=== PATIENT | female | born 1995 | race Caucasian/White ===

== ENCOUNTER 2018-09-16 07:05 | Outpatient (CLI) | payer OTHER ==
--- NOTE | 2018-09-16 09:10 | ULT ---
RIGHT UPPER QUADRANT ULTRASOUND: HISTORY: Right upper quadrant pain. FINDINGS: Slightly coarse liver echogenicity without hepatomegaly. No evidence of gallstones, wall thickening, edema, or pericholecystic fluid. Common bile duct 0.3 cm. Visualized pancreas and right kidney are unremarkable. No right upper quadrant abscess or abnormal fluid collection. IMPRESSION: Slightly coarse liver echogenicity. No evidence of gallstones or common duct dilatation. POS: T[facility]
== END 2018-09-16 07:06 | disposition home or self-care (01) ==
LOC: SCSULT 07:05
PROVIDERS: ATTEND Advanced Practice Midwife
DX: R10.11 Right upper quadrant pain (principal); K76.89 Other specified diseases of liver
CPT/HCPCS: 76705

== ENCOUNTER 2018-10-01 22:00 | Day surgery (SDC) | payer OTHER ==
[2018-10-01 22:43] VITALS: BP 135/67; TEMP 98.6; BMI 45.9
--- NOTE | 2018-10-01 22:59 | PDOC.LDHP ---
Labor and Delivery H&P Chief complaint: other (elevated BP) HPI: 22 y/o G1 at 20w3d, patient of Dr. Washington, presents with elevated BP at home. Patient has CHTN on Nifedipine XL but has not taken meds yet today. Noticed BPs were high at home and had a headache. Headache is typical for her, rated 2/ 10. BPs reported as high as 170 at home. Denies other complaints today. ROS neg for HEENT, CV, pulm, GI, , neuro, psych, skin, musculoskeletal, or constitutional symptoms other than mentioned above. OB History Details: 1st Past Medical History: Morbid obesity CHTN Current medications: pre- vitamins, other (Nifedipine XL, Aspirin 81mg) Previous surgical history: none Allergies/Adverse Reactions: Allergies Allergy/AdvReac Type Severity Reaction Status Date / Time sulfamethoxazole Allergy Intermediate Anxiety Verified 10/01/18 22:34 [From Bactrim] Penicillins Allergy Mild Hives Verified 10/01/18 22:34 trimethoprim [From Bactrim] Allergy Verified 10/01/18 22:33 Social history: none - Physical Exam Vital signs reviewed and normal: yes General: NAD, resting Lungs: nonlabored breathing Abdomen: gravid Extremeties: no edema - Assessment 22 y/o G1 at 20w3d with all normal BPs here. Declines Tylenol for headache. Normal FHTs. - Plan -: D/c home with precautions. Advised to follow up as scheduled or earlier if needed.
== END 2018-10-01 23:24 | disposition home or self-care (01) ==
LOC: L&D/OP 22:00
PROVIDERS: ATTEND Obstetrics & Gynecology
DX: O10.912 Unspecified pre-existing hypertension complicating pregnancy, second trimester (principal); O99.212 Obesity complicating pregnancy, second trimester; E66.01 Morbid (severe) obesity due to excess calories; Z3A.20 20 weeks gestation of pregnancy; Z88.2 Allergy status to sulfonamides; Z88.0 Allergy status to penicillin; Z79.82 Long term (current) use of aspirin; Z79.899 Other long term (current) drug therapy
CPT/HCPCS: 99282

== ENCOUNTER 2018-10-24 00:43 | Day surgery (SDC) | payer OTHER ==
[2018-10-24 01:34] VITALS: BMI 46.2
[2018-10-24 01:47] VITALS: BP 139/74; TEMP 99.2
[2018-10-24] MEDS ORDERED: hydrALAZINE 20 MG/ML VIAL SLOW IVP PRN (02:09)
--- NOTE | 2018-10-24 02:13 | PDOC.LDHP ---
Labor and Delivery H&P Chief complaint: other (N/V/Diarrhea) HPI: Patient of Dr Washington Time: 211 EGA: 23 weeks 5 days HPI: 23 yo G1 at 23 weeks 5 days with N/V/D since 10/22/18. States fever at home of 100.5. No VB, no LOF, no CTX. Review of Systems: completed ROS completed and as eper HPI Current gestational age (weeks): 23 (5 days) Due date: 02/15/19 Dating criteria: last menstrual period Grav: 1 Current complications: hypertension (Chronic HTN since High school on procardia) Abnormal US findings: No Past Medical History: CHTN Current medications: pre-anthony vitamins, other (ptocardia, zoloft, ASA) Previous surgical history: other (T&A, root canal) Allergies/Adverse Reactions: Allergies Allergy/AdvReac Type Severity Reaction Status Date / Time sulfamethoxazole Allergy Intermediate Anxiety Verified 10/24/18 01:30 [From Bactrim] Penicillins Allergy Mild Hives Verified 10/24/18 01:30 raspberry Allergy Verified 10/24/18 02:00 shrimp Allergy Verified 10/24/18 02:00 trimethoprim [From Bactrim] Allergy Verified 10/24/18 01:30 Social history: none - Physical Exam Vital signs reviewed and normal: yes (139/74 temp 99.2 106 20 100%) General: NAD Heart: RRR Lungs: CTAB Abdomen: gravid Extremeties: no edema Lengby contractions every: FHTS pos by doppler - Assessment 23 weeks 5 days, G1 with CHTN on meds...with N/V/D...possible gastroentreitis - Plan Plan: observation in L&D (I have ordered IV banana bag, zofran prn; we will check CMP, CBC, cath UA, RUQ sono)
[2018-10-24 02:37] LABS: #Eosinphils 0.1 thou/uL (0.0-0.7); #Lymphocytes 0.5 thou/uL (1.20-3.40); #Monocytes 0.5 thou/uL (0.11-0.59); #Neutrophils 9.8 thou/uL (1.40-6.50); %Basophils 0.1 % (0.0-1.0); %Eosinophils 0.5 % (0.0-10.0); %Lymphocytes 4.8 % (21.0-51.0); %Monocytes 4.6 % (0.0-10.0); Hemoglobin 12.6 g/dL (12.0-16.0); Mean Corpuscular Hemoglobin 29.8 pg (27.0-31.0); Mean Corpuscular Volume 85.2 fL (78.0-98.0); Mean Platelet Volume 6.8 fL (7.4-10.4); Platelet Count 240 thou/uL (130-400); RBC Distribution Width 12.8 % (11.5-14.5); Red Blood Cell (RBC) Count 4.23 mill/uL (4.20-5.40); White Blood Cell (WBC) Count 10.9 thou/uL (4.8-10.8)
[2018-10-24 02:55] LABS: ALT (SGPT) 11 U/L (8-55); AST (SGOT) 16 U/L (5-34); Albumin 3.5 g/dL (3.5-5.0); Alkaline Phosphatase 55 U/L (40-150); Anion Gap 11 mmol/L (10-20); BUN (Urea Nitrogen) 6 mg/dL (7.0-18.7); Bilirubin, Total 0.6 mg/dL (0.2-1.2); Calc. Creatinine Clearance 350 mL/min (70-130); Calcium 9.2 mg/dL (7.8-10.44); Carbon Dioxide 21 mmol/L (22-29); Chloride 107 mmol/L (98-107); Estimated GFR-MDRD Greater than 90; Globulin 2.9 g/dL (2.4-3.5); Glucose 101 mg/dL (70-105); Potassium 3.8 mmol/L (3.5-5.1); Protein, Total 6.4 g/dL (6.0-8.3); Sodium 135 mmol/L (136-145)
[2018-10-24] MEDS ORDERED: Multivitamins, Adult 10 ML, Folic Acid 1 MG, Thiamine HCl 100 MG in Dextrose 5 %-0.45 %... IV SCH (03:00)
[2018-10-24] MEDS ORDERED: Ondansetron HCl/PF 8 MG in Sodium Chloride 0.9% 50 ML IVPB SCH (03:00)
[2018-10-24 04:07] LABS: Bacteria/HPF None Seen HPF (None Seen); Bilirubin Negative (Negative); Blood, Urine Negative (Negative); Clarity Clear (Clear); Glucose, Urine (Dipstick) Normal (Negative); Leukocyte Negative Leu/uL (Negative); Nitrite Negative (Negative); Protein, Urine (Dipstick) 20 mg/dL (Neg-Trace); RBC/HPF 0-3 HPF (0-3); Squamous Epithelial 0-3 HPF (0-3); Urobilinogen Normal mg/dL (Less than 2); WBC/HPF 0-3 HPF (0-3)
[2018-10-24 04:08] LABS: Urine Culture Reflex No No
--- NOTE | 2018-10-24 04:20 | PDOC.EVN ---
Event Note - Event Note Event Note: labs and RUQ sono ok Home at 0500
--- NOTE | 2018-10-24 07:37 | ULT ---
GALLBLADDER ULTRASOUND: COMPARISON: 09/16/2018. CLINICAL INDICATION: patient with nausea and vomiting. FINDINGS: There is no evidence of focal hepatic lesion or acute gallbladder pathology. The common duct is norm al measuring 4 mm. No ascites. The incidentally imaged portions of the right kidney reveal no evide nce of hydronephrosis. IMPRESSION: No acute abnormality of the right upper quadrant identified by sonographic evaluation. POS: MIKY
== END 2018-10-24 05:08 | disposition home or self-care (01) ==
LOC: L&D/OP 00:43
PROVIDERS: ATTEND Obstetrics & Gynecology
DX: O21.2 Late vomiting of pregnancy (principal); O99.89 Other specified diseases and conditions complicating pregnancy, childbirth and the puerperium; R19.7 Diarrhea, unspecified; O10.912 Unspecified pre-existing hypertension complicating pregnancy, second trimester; Z3A.23 23 weeks gestation of pregnancy; Z79.899 Other long term (current) drug therapy; Z88.0 Allergy status to penicillin; Z88.2 Allergy status to sulfonamides; Z91.013 Allergy to seafood; Z91.018 Allergy to other foods
CPT/HCPCS: 51701; 76705; 80053; 81001; 85025; 96365; 96366; 99282; J2405; J3411; J7042

== ENCOUNTER 2018-12-02 15:49 | Day surgery (SDC) | payer OTHER ==
[2018-12-02 16:33] VITALS: BP 126/66; TEMP 98.9; BMI 47.1
[2018-12-02] MEDS ORDERED: hydrALAZINE 20 MG/ML VIAL SLOW IVP PRN (16:46)
--- NOTE | 2018-12-02 17:17 | ULT ---
ULTRASOUND BIOPHYSICAL PROFILE: HISTORY: Decreased movement, distress FINDINGS: A single live intrauterine gestation is seen. heart rate:158bpm KAREN: 5.8 cm Placenta: Anterior maternal left without placenta previa OB biophysical profile: tone: 2 breathin movements: 2 Amniotic fluid: 2 IMPRESSION: The ultrasound biophysical profile score is 8 out of 8.
--- NOTE | 2018-12-03 03:15 | SS ---
DATE OF ADMISSION: 12/02/2018 DATE OF DISCHARGE: 12/02/2018 REGULAR PHYSICIAN: Tara Washington MD EVALUATING PHYSICIAN: Maynor Leal MD CHIEF COMPLAINT: Sent from Dr. Washington's office. HISTORY OF PRESENT ILLNESS: Ms. Valdez is a 23-year-old white G1, P0 with an estimated date of confinement of 02/15/2019, who presents complaining of decreased movement over the last 24 hours. She denies bleeding or loss of fluid. Her care has been with Dr. Washington and she has been followed by Maternal- Medicine as a high-risk . PAST MEDICAL HISTORY: Hypertension and anxiety. PAST SURGICAL HISTORY: Tonsillectomy and adenoidectomy. CURRENT MEDICATIONS: 1. BuSpar 15 mg daily. 2. Sertraline 50 mg daily. 3. vitamins. 4. Procardia XL 90 mg once a day. 5. Aspirin 81 mg daily. ALLERGIES: PENICILLIN AND BACTRIM. SOCIAL HISTORY: She denies tobacco or alcohol use. FAMILY HISTORY: Unremarkable. REVIEW OF SYSTEMS: She denies nausea, vomiting, fever, chills, ruptured membranes, or vaginal bleeding. PHYSICAL EXAMINATION: VITAL SIGNS: Blood pressure is 136/74. She is afebrile. GENERAL: She is pleasant, in no distress. ABDOMEN: Soft, nontender, gravid, and obese. PELVIC: Deferred. heart rate tracing is stable with no decelerations. Biophysical profile ordered by Dr. Washington returns, 10/23, but a note of an KAREN of 5.8 was reported to me. ASSESSMENT: 1. Cwkaxw-haof-umjo intrauterine . 2. Decreased movement, now resolved. 3. Reassuring biophysical profile with KAREN of 5.8. PLAN: I have discussed with Dr. Washington and the plan at this time due to the findings on biophysical profile will be to send her home with kick counts and to hydrate herself well at home. She will call Dr. Washington's office in the morning for followup ultrasound. Job ID: [id number]
== END 2018-12-02 17:40 | disposition home health service (06) ==
LOC: L&D/OP 15:49
PROVIDERS: ATTEND Obstetrics & Gynecology
DX: O36.8130 Decreased fetal movements, third trimester, not applicable or unspecified (principal); O10.913 Unspecified pre-existing hypertension complicating pregnancy, third trimester; O99.343 Other mental disorders complicating pregnancy, third trimester; F41.9 Anxiety disorder, unspecified; Z3A.29 29 weeks gestation of pregnancy; Z79.82 Long term (current) use of aspirin; Z79.899 Other long term (current) drug therapy; Z88.0 Allergy status to penicillin; Z88.8 Allergy status to other drugs, medicaments and biological substances
CPT/HCPCS: 76819; 99282

== ENCOUNTER 2018-12-08 16:02 | Observation (INO) | payer OTHER ==
[2018-12-08 16:19] VITALS: BMI 47.5
[2018-12-08] MEDS ORDERED: hydrALAZINE 20 MG/ML VIAL SLOW IVP PRN (16:45)
[2018-12-08] MEDS ORDERED: Ondansetron PF 4 MG/2 ML Vial IVP PRN (16:45)
[2018-12-08] MEDS ORDERED: Promethazine HCl 25 MG/ML VIAL IM PRN (16:45)
[2018-12-08] MEDS ORDERED: Acetaminophen 500 MG TAB PO PRN (16:45)
[2018-12-08 17:16] LABS: Hemoglobin 11.9 g/dL (12.0-16.0); Mean Corpuscular HGB CONC 34.3 g/dL (32.0-36.0); Mean Corpuscular Hemoglobin 29.2 pg (27.0-31.0); Mean Corpuscular Volume 85.1 fL (78.0-98.0); Platelet Count 266 thou/uL (130-400); RBC Distribution Width 12.7 % (11.5-14.5); Red Blood Cell (RBC) Count 4.08 mill/uL (4.20-5.40); White Blood Cell (WBC) Count 12.1 thou/uL (4.8-10.8)
[2018-12-08 17:42] LABS: ALT (SGPT) 9 U/L (8-55); AST (SGOT) 13 U/L (5-34); Albumin 3.5 g/dL (3.5-5.0); Alkaline Phosphatase 60 U/L (40-150); Anion Gap 12 mmol/L (10-20); BUN (Urea Nitrogen) 8 mg/dL (7.0-18.7); Bilirubin, Total 0.3 mg/dL (0.2-1.2); Calc. Creatinine Clearance 326 mL/min (70-130); Calcium 10.2 mg/dL (7.8-10.44); Carbon Dioxide 21 mmol/L (22-29); Chloride 107 mmol/L (98-107); Estimated GFR-MDRD Greater than 90; Globulin 2.8 g/dL (2.4-3.5); Glucose 103 mg/dL (70-105); Potassium 3.7 mmol/L (3.5-5.1); Protein, Total 6.3 g/dL (6.0-8.3); Sodium 136 mmol/L (136-145)
--- NOTE | 2018-12-08 17:50 | HP ---
TIME OF SERVICE: 1700. REASON FOR ADMISSION: Gestational hypertension superimposed on chronic hypertension with severe range levels in office at 30 weeks' gestation. HISTORY OF PRESENT ILLNESS: Ms. Valdez is a 23-year-old, G1, P0 with EDC of 02/15, who sees Dr. Tara Washington. The patient has a history of pre-gestational hypertension and was started on Procardia, and in the first trimester, it was increased from 30 mg to 90. She skipped a couple of doses over the weekend and today in the office had a blood pressure of 180 systolic. She denies headache, scotoma, or right upper quadrant pain. The patient has had several visits to the OB unit for elevated pressures in the office that have resolved on their own. RADIOLOGIST HISTORY: As noted. O negative, antibody negative. Pap negative. Rubella immune. VDRL nonreactive. Hepatitis B, GC, and Chlamydia are negative. 50-gram within normal limits. PAST MEDICAL HISTORY: Significant for morbid obesity, depression, and anxiety as well as chronic hypertension. PAST SURGICAL HISTORY: None. ALLERGIES: 1. SULFA. 2. PENICILLIN. 3. RASPBERRY. 4. SHRIMP. 5. TRIMETHOPRIM. MEDICATIONS: 1. Procardia XL 90 at bedtime. 2. BuSpar 15 p.o. at bedtime. 3. Zoloft 50 p.o. at bedtime. 4. vitamin p.r.n. SOCIAL HISTORY: Denies tobacco, alcohol, or drug use. FAMILY HISTORY: Noncontributory. REVIEW OF SYSTEMS: Noncontributory. PHYSICAL EXAMINATION: GENERAL: Morbidly obese, white female. VITAL SIGNS: Current blood pressure 132/80, pulse 85, respirations 18, temperature 98.7. HEENT: Within normal limits. LUNGS: Clear to auscultation bilaterally. HEART: Regular rhythm. ABDOMEN: Soft and nontender. No rebound or guarding. PELVIC: Deferred. EXTREMITIES: Without clubbing, cyanosis, or edema. heart rate tracing revealed a category 1 strip, positive accelerations, no decelerations, no contractions noted. LABORATORY DATA: Laboratories are pending including comprehensive metabolic panel, hemogram, creatinine, random urine creatinine, random urine protein, hepatitis B, and syphilis IgG/IgM. IMPRESSION: Thirty weeks' gestation with chronic hypertension and superimposed gestational hypertension with occasional severe level of pressures. PLAN: Admission for 23-hour observation. We will follow up urine protein and creatinine, and if suggestive of elevated total protein, we will perform 24-hour urine. We will perform serial blood pressures and daily NSTs. We will check outpatient with Dr. Washington. Job ID: [id number]
[2018-12-08 17:58] LABS: HBSAg Index 0.14 S/CO (0-0.99); Hep B Surf Ag Non-Reactive S/CO (NonReactive)
[2018-12-08 17:59] LABS: Syphilis Antibody Nonreactive (Nonreactive); Syphilis Antibody Index 0.06 S/CO (<1.00 Non-Reactive)
[2018-12-08 18:12] LABS: Creatinine, Urine 133.41 mg/dL (47-110)
[2018-12-08] MEDS ORDERED: NIFEdipine XL 90 MG TAB PO SCH (21:00)
[2018-12-08] MEDS ORDERED: busPIRone HCl 10 MG TAB PO SCH (21:00)
[2018-12-09 07:51] VITALS: BP 130/62; TEMP 98
--- NOTE | 2018-12-09 08:18 | DIS ---
DATE OF ADMISSION: 12/08/2018 DATE OF DISCHARGE: 12/09/2018 TIME OF DISCHARGE: 0730 hours. HISTORY: Ms. Valdez is resting comfortably this morning. She denies headache. Reports an active fetus and has no contractions. PHYSICAL EXAMINATION: VITAL SIGNS: Temperature 98.1, pulse 96, blood pressure 132/60, respirations 20, and the patient's blood pressures have remained below 140s/90s throughout her hospitalization. LUNGS: Clear to auscultation bilaterally. HEART: Regular rate and rhythm. ABDOMEN: Soft and nontender without rebound or guarding. FHTs are 140s. LABORATORY DATA: Admission labs include hematocrit of 34%, platelet count of 266. Normal ALT and AST. Urine [id number] ratio less than 0.1. IMPRESSION: Chronic hypertension with superimposed gestational hypertension responsive to hospitalization on antihypertensives at 30 weeks' gestation. PLAN: Discharge home. Reduce to work activity. Continue medications on admissions, Procardia, buspirone, and sertraline and follow up in next week at [facility] with Dr. Washington. ER precautions given. Job ID: [id number]
[2018-12-09] MEDS ORDERED: NIFEdipine XL 90 MG TAB PO SCH (21:00)
== END 2018-12-09 10:25 | disposition home health service (06) ==
LOC: L&D/OP 16:02 → L&D 17:37 → 3SE 19:33
PROVIDERS: ADMIT Obstetrics & Gynecology; ATTEND Obstetrics & Gynecology
DX: O10.013 Pre-existing essential hypertension complicating pregnancy, third trimester (principal); O99.343 Other mental disorders complicating pregnancy, third trimester; F41.9 Anxiety disorder, unspecified; F32.9 Major depressive disorder, single episode, unspecified; O99.213 Obesity complicating pregnancy, third trimester; E66.01 Morbid (severe) obesity due to excess calories; Z3A.30 30 weeks gestation of pregnancy; Z79.82 Long term (current) use of aspirin; Z79.899 Other long term (current) drug therapy; Z88.0 Allergy status to penicillin; Z88.2 Allergy status to sulfonamides; Z88.8 Allergy status to other drugs, medicaments and biological substances; Z91.018 Allergy to other foods
CPT/HCPCS: 36415; 80053; 82570; 84156; 85027; 86780; 86850; 86870; 86900; 86901; 87340; 99285; G0378

== ENCOUNTER 2019-01-15 00:25 | Day surgery (SDC) | payer OTHER ==
[2019-01-15 00:54] VITALS: BMI 48.1
[2019-01-15 01:15] VITALS: BP 134/70; TEMP 98.9
[2019-01-15] MEDS ORDERED: hydrALAZINE 20 MG/ML VIAL SLOW IVP PRN (01:25)
--- NOTE | 2019-01-15 01:32 | PDOC.LDHP ---
Labor and Delivery H&P Chief complaint: other HPI: 23 y/o G1 at 35w4d, patient of Dr. Washington, presents after having a pounding in her head and some nausea just before taking her medication tonight. She took her BP and it was 180s/90s at home. She reports all symptoms have subsided now. Denies VB, LOF, ctx, or decreased FM. Denies PIH symptoms at this time. ROS neg for HEENT, cv, pulm, gi, gu, neuro, psych, skin, musculoskeletal or constitutional symptoms other than mentioned above. OB History Details: First Current complications: hypertension Past Medical History: Morbid obesity CHTN Depression Anxiety Current medications: pre-anthony vitamins, other (Procardia XL 90mg QHS Buspar 15mg PO QHS Zoloft 50mg PO QHS) Previous surgical history: none Allergies/Adverse Reactions: Allergies Allergy/AdvReac Type Severity Reaction Status Date / Time sulfamethoxazole Allergy Intermediate Anxiety Verified 12/08/18 16:32 [From Bactrim] Penicillins Allergy Mild Hives Verified 12/08/18 16:32 raspberry Allergy Verified 12/08/18 16:32 shrimp Allergy Verified 12/08/18 16:32 trimethoprim [From Bactrim] Allergy Verified 12/08/18 16:32 Social history: none - Physical Exam Vital signs reviewed and normal: yes General: NAD, resting Lungs: nonlabored breathing Abdomen: gravid Extremeties: no edema FHT: category 1 (140s, mod variability, + accels, no decels) Frisbee contractions every: None - Assessment 23 y/o G1 at 35w4d with known CHTN on Procardia XL 90mg daily. Symptoms resolved and BPs wnl here. Labs rechecked (unremarkable) since it's been 2 weeks since last check and BPs reportedly severe range at home. status reassuring with reactive NST. - Plan -: D/c home with precautions. Advised to keep appointment for this morning.
[2019-01-15 01:58] LABS: #Basophils 0.1 thou/uL (0.0-0.2); #Eosinphils 0.4 thou/uL (0.0-0.7); #Lymphocytes 2.2 thou/uL (1.20-3.40); #Monocytes 0.9 thou/uL (0.11-0.59); #Neutrophils 8.2 thou/uL (1.40-6.50); %Basophils 0.5 % (0.0-1.0); %Eosinophils 3.5 % (0.0-10.0); %Lymphocytes 18.9 % (21.0-51.0); %Monocytes 7.4 % (0.0-10.0); %Neutrophils 69.7 % (42.0-75.0); Hemoglobin 11.9 g/dL (12.0-16.0); Mean Corpuscular HGB CONC 35.7 g/dL (32.0-36.0); Mean Corpuscular Hemoglobin 30.3 pg (27.0-31.0); Mean Corpuscular Volume 84.7 fL (78.0-98.0); Mean Platelet Volume 7.3 fL (7.4-10.4); Platelet Count 253 thou/uL (130-400); Red Blood Cell (RBC) Count 3.95 mill/uL (4.20-5.40); White Blood Cell (WBC) Count 11.8 thou/uL (4.8-10.8)
[2019-01-15 02:07] LABS: Creatinine, Urine 51.41 mg/dL (47-110)
[2019-01-15 02:17] LABS: ALT (SGPT) 9 U/L (8-55); AST (SGOT) 14 U/L (5-34); Albumin 3.4 g/dL (3.5-5.0); Alkaline Phosphatase 82 U/L (40-110); Anion Gap 12 mmol/L (10-20); BUN (Urea Nitrogen) 6 mg/dL (7.0-18.7); Bilirubin, Total 0.3 mg/dL (0.2-1.2); Calc. Creatinine Clearance 320 mL/min (70-130); Calcium 9.4 mg/dL (7.8-10.44); Carbon Dioxide 24 mmol/L (22-29); Chloride 108 mmol/L (98-107); Estimated GFR-MDRD Greater than 90; Globulin 2.9 g/dL (2.4-3.5); Glucose 95 mg/dL (70-105); Protein, Total 6.3 g/dL (6.0-8.3); Sodium 140 mmol/L (136-145)
== END 2019-01-15 02:30 | disposition home or self-care (01) ==
LOC: L&D/OP 00:25
PROVIDERS: ATTEND Obstetrics & Gynecology
DX: O10.911 Unspecified pre-existing hypertension complicating pregnancy, first trimester (principal); O99.213 Obesity complicating pregnancy, third trimester; E66.01 Morbid (severe) obesity due to excess calories; O99.343 Other mental disorders complicating pregnancy, third trimester; F41.9 Anxiety disorder, unspecified; F32.9 Major depressive disorder, single episode, unspecified; Z3A.35 35 weeks gestation of pregnancy; Z79.899 Other long term (current) drug therapy; Z88.0 Allergy status to penicillin; Z88.2 Allergy status to sulfonamides; Z91.013 Allergy to seafood; Z91.018 Allergy to other foods
CPT/HCPCS: 36415; 80053; 82570; 84156; 85025; 99283

== ENCOUNTER 2019-01-26 19:17 | Inpatient (IN) | payer OTHER ==
--- NOTE | 2019-01-26 18:20 | PDOC.LDHP ---
Labor and Delivery H&P Chief complaint: scheduled induction HPI: 23 y/o WF at 37 weeks and 1 day by LMP of 02/15 confirmed by first trimester u/s. History of chronic hypertension that was not treated prior to . Blood pressure controlled on procardia 90 mg xl daily after titration.Secondary hypertension work up negative. Has been followed for some borderline IUGHR issues with [facility] which resolved prior to 32 weeks. Has been undergoing weekly BPP since 32 weeks ...All 10/23 and reassuring. Intermittent PIH labs have been normal. Current gestational age (weeks): 37 Dating criteria: first trimester ultrasound Grav: 1 Para: 0 Current complications: hypertension, other (Morbid obesity) Abnormal US findings: No Current medications: pre-anthony vitamins, other (Procardia 90 mg xl/d Buspar 15 mg bid Sertraline 50 mg/d pnv/d) Allergies/Adverse Reactions: Allergies Allergy/AdvReac Type Severity Reaction Status Date / Time sulfamethoxazole Allergy Intermediate Anxiety Verified 12/08/18 16:32 [From Bactrim] Penicillins Allergy Mild Hives Verified 12/08/18 16:32 raspberry Allergy Verified 12/08/18 16:32 shrimp Allergy Verified 12/08/18 16:32 trimethoprim [From Bactrim] Allergy Verified 12/08/18 16:32 - Physical Exam FHT: category 1 (0) - Vaginal Exam Effacement: 50% Station: -1 - OB Labs Blood type: O RH: negative Antibody Screen: negative HIV: negative RPR: negative HEPSAg: negative 1 hour GCT: negative GBS: negative Urine drug screen: negative Rubella: immune - Assessment L&D Assessment: medically indicated induction - Plan Plan: admit to L&D, cervical ripening, labor augmentation if indicated (Blood pressur emonitoring and treatment for >160/100. Magnesium sulfate prophylaxis as indicated.)
[2019-01-26] MEDS ORDERED: Promethazine HCl 25 MG/ML VIAL IM PRN (21:31)
[2019-01-26] MEDS ORDERED: NS / Oxytocin 40 units/1000ml 1,000 ML IV PRN (21:31)
[2019-01-26] MEDS ORDERED: Butorphanol Tartrate 1 MG/ML VIAL SLOW IVP PRN (21:31)
[2019-01-26] MEDS ORDERED: Acetaminophen 500 MG TAB PO PRN (21:31)
[2019-01-26] MEDS ORDERED: Lidocaine 1% (PF) 30 ML VIAL SC PRN (21:31)
[2019-01-26 21:32] VITALS: BMI 47.0
[2019-01-26] MEDS: Lactated Ringer's 1,000 ML IV SCH (22:00)
[2019-01-26] MEDS ORDERED: Misoprostol 100 MCG TAB ONE (22:00)
[2019-01-26 22:29] LABS: Hemoglobin 12.9 g/dL (12.0-16.0); Mean Corpuscular Hemoglobin 29.8 pg (27.0-31.0); Mean Platelet Volume 7.9 fL (7.4-10.4); Platelet Count 285 thou/uL (130-400); RBC Distribution Width 13.5 % (11.5-14.5); Red Blood Cell (RBC) Count 4.34 mill/uL (4.20-5.40); White Blood Cell (WBC) Count 12.6 thou/uL (4.8-10.8)
[2019-01-26 22:44] LABS: ALT (SGPT) 9 U/L (8-55); AST (SGOT) 18 U/L (5-34); Albumin 3.6 g/dL (3.5-5.0); Alkaline Phosphatase 102 U/L (40-110); Anion Gap 15 mmol/L (10-20); BUN (Urea Nitrogen) 7 mg/dL (7.0-18.7); Bilirubin, Total 0.4 mg/dL (0.2-1.2); Calc. Creatinine Clearance 367 mL/min (70-130); Calcium 9.7 mg/dL (7.8-10.44); Carbon Dioxide 19 mmol/L (22-29); Chloride 109 mmol/L (98-107); Estimated GFR-MDRD Greater than 90; Globulin 2.6 g/dL (2.4-3.5); Glucose 86 mg/dL (70-105); Potassium 4.5 mmol/L (3.5-5.1); Protein, Total 6.2 g/dL (6.0-8.3); Sodium 138 mmol/L (136-145)
[2019-01-26 23:07] LABS: Syphilis Antibody Nonreactive (Nonreactive); Syphilis Antibody Index 0.09 S/CO (<1.00 Non-Reactive)
[2019-01-27 00:29] LABS: HBSAg Index 0.17 S/CO (0-0.99); Hep B Surf Ag Non-Reactive S/CO (NonReactive)
[2019-01-27] MEDS ORDERED: Misoprostol 100 MCG TAB ONE (01:33)
[2019-01-27] MEDS ORDERED: Misoprostol 100 MCG TAB PO SCH (11:45)
--- NOTE | 2019-01-27 17:50 | PDOC.EVN ---
Event Note - Event Note Event Note: Asked to AROM by Dr. Washington. Now s/p 5 doses of Cytotec. SVE ~ 1cm, unable to AROM. FHTs stable. UCs mild, q 2-[address] Washington notified.
[2019-01-27] MEDS: Lactated Ringer's 1,000 ML IV SCH ×2 (17:53→23:16)
[2019-01-27] MEDS: Ondansetron PF 4 MG/2 ML Vial IVP PRN (18:16)
[2019-01-27] MEDS: NS w/ Oxytocin 10 units 500 ML IV SCH (19:15)
[2019-01-27] MEDS ORDERED: Fentanyl 4 mcg/Bup 0.1% Cadd 100 ML ONE (22:24)
[2019-01-27] MEDS ORDERED: Acetaminophen 325 MG TAB PO PRN (23:06)
[2019-01-27] MEDS ORDERED: Ondansetron PF 4 MG/2 ML Vial IVP PRN (23:06)
[2019-01-27] MEDS ORDERED: diphenhydrAMINE 50 MG/ML VIAL IVP PRN (23:06)
[2019-01-27] MEDS ORDERED: Promethazine HCl 25 MG/ML VIAL IM PRN (23:06)
[2019-01-27] MEDS ORDERED: Lactated Ringer's 500 ML IV PRN (23:06)
[2019-01-27] MEDS ORDERED: Naloxone HCl 0.4 mg/ml Vial IVP PRN ×2 (23:06)
[2019-01-27] MEDS ORDERED: ePHEDrine/0.9% NaCl/PF SYRINGE 50 mg/10 ml SLOW IVP PRN (23:06)
[2019-01-27] MEDS ORDERED: Communication Order-Pharmacy FS SCH (23:15)
[2019-01-27] MEDS: Fentanyl 4 mcg/Bupivacaine 0.1% Cassette 100 ML EPIDURAL SCH (23:16)
[2019-01-28] MEDS: Ondansetron PF 4 MG/2 ML Vial IVP PRN ×2 (03:43→11:36)
[2019-01-28] MEDS: Misoprostol 100 MCG TAB VAG SCH ×5 (03:49→16:26)
[2019-01-28] MEDS: Lactated Ringer's 1,000 ML IV SCH ×2 (03:50→10:04)
[2019-01-28] MEDS ORDERED: Fentanyl 4 mcg/Bup 0.1% Cadd 100 ML ONE ×2 (06:03→11:46)
[2019-01-28] MEDS: NS w/ Oxytocin 10 units 500 ML IV SCH ×2 (07:30→14:42)
[2019-01-28] MEDS: Fentanyl 4 mcg/Bupivacaine 0.1% Cassette 100 ML EPIDURAL SCH (11:57)
[2019-01-28] MEDS ORDERED: Dextrose 5%-Lactated Ringers 1,000 ML IV SCH (13:00)
[2019-01-28] MEDS ORDERED: Lactated Ringer's 1,000 ML IV SCH (13:00)
[2019-01-28] MEDS: hydrALAZINE 20 MG/ML VIAL SLOW IVP PRN ×2 (14:39→16:25)
[2019-01-28] MEDS ORDERED: Labetalol HCl 100 MG/20 ML VIAL ONE (16:20)
[2019-01-28] MEDS ORDERED: Labetalol HCl 100 MG/20 ML VIAL SLOW IVP PRN ×3 (16:40→16:42)
[2019-01-28] MEDS ORDERED: Misoprostol 200 MCG TAB ONE (16:57)
[2019-01-28] MEDS ORDERED: NS / Oxytocin 40 units/1000ml 1,000 ML ONE (16:58)
--- NOTE | 2019-01-28 17:58 | PDOC.OPDEL ---
OB Operative/Delivery Note Delivery Dr/Surgeon: Felix Pre-Delivery Diagnosis: medically indicated induction Procedure/Post Delivery Dx: spontaneous vaginal delivery Weeks gestation: 37 Anesthesia: epidural - Findings A - 1 min: 9 - 5 min: 9 - Additional Findings/Plan Placenta delivered: spontaneous Repaired Obstetrical Laceration: 2nd degree Estimated blood loss: 40 ml qbl Post delivery plan: routine recovery
[2019-01-28] MEDS ORDERED: Terbutaline Sulfate 1 MG/ML VIAL ONE (18:00)
[2019-01-28] MEDS ORDERED: Bupivacaine 0.25% HCL 30 ML VIAL ONE (18:00)
[2019-01-28] MEDS ORDERED: Sodium Chloride 0.9% (PF) 10 ML VIAL ONE (18:00)
[2019-01-28] MEDS ORDERED: Milk Of Magnesia 30 ML UDCUP PO PRN (18:02)
[2019-01-28] MEDS ORDERED: hydrALAZINE 20 MG/ML VIAL SLOW IVP PRN (18:02)
[2019-01-28] MEDS ORDERED: Preparation H Ointment 28 GM TUBE PR PRN (18:02)
[2019-01-28] MEDS ORDERED: Bisacodyl 10 MG SUPP PR PRN (18:02)
[2019-01-28] MEDS ORDERED: Lanolin Ointment 7 GM TUBE TOP PRN (18:02)
[2019-01-28] MEDS ORDERED: traMADol HCl 50 MG TAB PO PRN (18:02)
[2019-01-28] MEDS ORDERED: NS / Oxytocin 40 units/1000ml 1,000 ML IV SCH (18:15)
[2019-01-28] MEDS: Docusate Calcium (SURFAK) 240 MG CAP PO SCH (23:16)
[2019-01-28] MEDS: Ibuprofen 800 MG TAB PO SCH (23:16)
[2019-01-29] MEDS: Ibuprofen 800 MG TAB PO SCH ×3 (02:20→21:26)
--- NOTE | 2019-01-29 08:09 | PDOC.PP ---
Post Progress Note Post Day #: 0-1 Subjective: No concerns. No PIH symptoms. PO intake tolerated: yes Flatus: yes Ambulation: yes Vital Signs (12 hours) Pulse BP 01/28/19 23:13 121 H 179/68 H Weight Weight 328 lb Result Diagrams: 01/26/19 22:19 01/26/19 22:19 Additional Labs: Post Labs Blood Type O NEGATIVE 01/26/19 22:19 Hep Bs Antigen Non-Reactive S/CO (NonReactive) 01/26/19 22:19 - Assessment/Plan Blood pressures normalized at 120-130's/80's on maintenance Procardia 90 mg xl/ d....Transfer to floor and plan for discharge 01/30...
[2019-01-29] MEDS: Ferrous Sulfate 325 MG TAB PO SCH ×2 (11:43→19:12)
[2019-01-29] MEDS: Docusate Calcium (SURFAK) 240 MG CAP PO SCH ×2 (11:43→21:26)
[2019-01-29] MEDS: Misoprostol 100 MCG TAB VAG SCH (11:44)
[2019-01-29] MEDS: Lactated Ringer's 1,000 ML IV SCH (11:44)
[2019-01-29] MEDS ORDERED: Adacel (T-DAP) 0.5 ML SYRINGE IM ONE (18:02)
[2019-01-30] MEDS: Ibuprofen 800 MG TAB PO SCH (05:41)
[2019-01-30] MEDS: Ferrous Sulfate 325 MG TAB PO SCH (08:06)
[2019-01-30] MEDS: Docusate Calcium (SURFAK) 240 MG CAP PO SCH (08:06)
[2019-01-30 08:38] VITALS: BP 140/86; TEMP 98.2
[2019-01-30] MEDS ORDERED: Prenatal Vitamin 1 TAB PO SCH (09:00)
[2019-01-30] MEDS ORDERED: Aspirin 81 mg Enteric Coated Tablet PO SCH (09:00)
[2019-01-30] MEDS ORDERED: Non-Formulary Item 1 EACH (Prenatal 21/Iron Fu/Folic Acid [Prenatal Complete Caplet] 1 TA PO SCH (09:00)
[2019-01-30] MEDS ORDERED: busPIRone HCl 5 MG TAB PO SCH (21:00)
[2019-01-30] MEDS ORDERED: busPIRone HCl 10 MG TAB PO SCH (21:00)
[2019-01-30] MEDS ORDERED: NIFEdipine XL 90 MG TAB PO SCH (21:00)
== END 2019-01-30 09:50 | disposition home or self-care (01) | DRG 807 ==
LOC: L&D 19:17 → 3SW 01-29 09:22
PROVIDERS: ADMIT Obstetrics & Gynecology; ATTEND Obstetrics & Gynecology
PROC: 10E0XZZ Delivery of Products of Conception, External Approach (ICD-10-PCS; principal; 2019-01-27)
PROC: 0KQM0ZZ Repair Perineum Muscle, Open Approach (ICD-10-PCS; 2019-01-27)
PROC: 10907ZC Drainage of Amniotic Fluid, Therapeutic from Products of Conception, Via Natural or Artificial Opening (ICD-10-PCS; 2019-01-27)
PROC: 3E0P7VZ Introduction of Hormone into Female Reproductive, Via Natural or Artificial Opening (ICD-10-PCS; 2019-01-27)
PROC: 3E033VJ Introduction of Other Hormone into Peripheral Vein, Percutaneous Approach (ICD-10-PCS; 2019-01-27)
DX: O10.02 Pre-existing essential hypertension complicating childbirth (principal); Z37.0 Single live birth; O99.214 Obesity complicating childbirth; E66.01 Morbid (severe) obesity due to excess calories; O70.1 Second degree perineal laceration during delivery; Z3A.37 37 weeks gestation of pregnancy; Z91.018 Allergy to other foods; Z88.2 Allergy status to sulfonamides; Z88.1 Allergy status to other antibiotic agents; Z88.0 Allergy status to penicillin; Z91.013 Allergy to seafood; Z79.899 Other long term (current) drug therapy
CPT/HCPCS: 36415; 80053; 85027; 86780; 86850; 86870; 86900; 86901; 87340; J0360; J2405; J2550; J2590; J3105; S0020